=== PATIENT | male | born 1995 | race Caucasian/White ===

== ENCOUNTER 2017-05-25 19:24 | Emergency (ER) | payer SELFPAY ==
[~2017-05-25] VITALS: Ht 177.8 cm; Wt 81.6 kg
[2017-05-25 19:27] VITALS: BP 121/59
--- NOTE | 2017-05-25 19:49 | NUR ---
AMBULATED TO ER BED 6
--- NOTE | 2017-05-25 19:50 | NUR ---
PATIENT PRESENTS TO ED WITH c/o testicular pain. . PT DENIES N/V/D; SKIN IS PINK/WARM/DRY; AAOX4 WITH EVEN AND STEADY GAIT; LUNGS CLEAR BL; HR EVEN AND REGULAR; PT DENIES ANY FEVER, CP, SOB, OR COUGH AT THIS TIME; PATIENT STATES PAIN OF 10/10 AT THIS TIME; VSS; PATIENT POSITIONED FOR COMFORT; HOB ELEVATED; BEDRAILS UP X2; BED DOWN. ER MD MADE AWARE OF PT STATUS.
[2017-05-25] MEDS ORDERED: HYDROcodone/APAP 5/325 MG 1 TAB TAB PO ONE (20:00)
[2017-05-25] MEDS ORDERED: KETOROLAC 30 MG/ML VIAL IM ONE (20:00)
--- NOTE | 2017-05-25 20:48 | NUR ---
Patient discharged with v/s stable. Written and verbal after care instructions given and explained. Patient alert, oriented and verbalized understanding of instructions. Ambulatory with steady gait. All questions addressed prior to discharge. ID band removed. Patient advised to follow up with PMD. Rx of norco and naprosyn given. Patient educated on indication of medication including possible reaction and side effects. Opportunity to ask questions provided and answered.
[2017-05-25 20:49] VITALS: BP 121/59
== END 2017-05-25 20:49 | disposition home or self-care (01) ==
LOC: MED 19:24 → EDBD 19:24 → MED 20:49
DX: S30.22XA Contusion of scrotum and testes, initial encounter (principal); N50.812 Left testicular pain; X58.XXXA Exposure to other specified factors, initial encounter; Y93.89 Activity, other specified; Y92.89 Other specified places as the place of occurrence of the external cause; Y99.8 Other external cause status
CPT/HCPCS: 76870; 96372; 99284; J1885; Q0092

== ENCOUNTER 2019-05-31 00:09 | Emergency (ER) | payer SELFPAY ==
[~2019-05-31] VITALS: Ht 180.3 cm; Wt 109.1 kg
[2019-05-31 00:14] VITALS: BP 149/80
--- NOTE | 2019-05-31 00:30 | NUR ---
PT AMBULATED TO BED 07.
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
[2019-05-31] MEDS ORDERED: KETOROLAC 60 MG/2 ML VIAL IM ONE (00:55)
--- NOTE | 2019-05-31 01:23 | NUR ---
PT TAKEN TO RAD VIA W/C
--- NOTE | 2019-05-31 01:29 | NUR ---
PT RETURNED FROM RAD VIA W/C
[2019-05-31 02:10] VITALS: BP 136/78
--- NOTE | 2019-05-31 02:10 | NUR ---
Patient discharged with v/s stable. Written and verbal after care instructions given and explained. Pt AAox4 in no distres and verbalized understanding of instructions. Ambulatory with steady gait. All questions addressed prior to discharge. ID band removed. Patient advised to follow up with PMD. Rx of NAPROXEN 500MG. Patient educated on indication of medication including possible reaction and side effects. Opportunity to ask questions provided and answered.
--- NOTE | 2019-05-31 02:10 | NUR ---
Note undone in EDM - 05/31/19 at 0304 by [facility] Patient discharged with v/s stable. Written and verbal after care instructions given and explained. Pt AAox4 in no distres and verbalized understanding of instructions. Ambulatory with steady gait. All questions addressed prior to discharge. ID band removed. Patient advised to follow up with PMD. Rx of NAPROXEN 500MG, BENTYL 20MG AND CIPRO 500MG given. Patient educated on indication of medication including possible reaction and side effects. Opportunity to ask questions provided and answered.
== END 2019-05-31 02:10 | disposition home or self-care (01) ==
LOC: MED 00:09
DX: M54.5 Low back pain (principal); V89.2XXA Person injured in unspecified motor-vehicle accident, traffic, initial encounter; Y93.89 Activity, other specified; Y92.89 Other specified places as the place of occurrence of the external cause; Y99.8 Other external cause status
CPT/HCPCS: 72100; 96372; 99283; J1885